=== PATIENT | male | born 1980 | race Caucasian/White ===

== ENCOUNTER 2017-01-30 14:15 | Emergency (ER) | payer OTHER ==
[~2017-01-30] VITALS: Ht 182.9 cm; Wt 80.0 kg
[~2017-01-30 14:15] MED LIST: DIFL500T PO; LISI-360 PO
[2017-01-30 14:17] VITALS: BP 126/74; PULSE 88; RESP 15; TEMP 98.1; O2SAT 99
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
== END 2017-01-30 16:07 | disposition home or self-care (01) ==
LOC: NEPK 14:15
DX: M25.512 Pain in left shoulder (principal); W19.XXXA Unspecified fall, initial encounter; Y99.8 Other external cause status
CPT/HCPCS: 73030; 99283